=== PATIENT | female | born 1995 | race Caucasian/White ===

== ENCOUNTER 2020-07-01 22:11 | Emergency (ER) | payer OTHER ==
[~2020-07-01] VITALS: Ht 167.6 cm; Wt 81.8 kg
[2020-07-01] MEDS ORDERED: ONDANSETRON ODT 4 MG TAB.RAPDIS PO ONE (22:30)
[2020-07-01 23:12] LABS: BACTERIA,URINE FEW /HPF (0-FEW); BILIRUBIN,URINE NEG (NEG); CLARITY,URINE HAZY; COLOR,URINE YELLOW; GLUCOSE,URINE NEG (NEG); NITRITE,URINE NEG (NEG); SQUAMOUS EPITHELIAL CELL,UR FEW /LPF; UROBILINOGEN,URINE 0.2 mg/dL (0.2 mg/dL); WBC,URINE 0 /HPF (0-4)
--- NOTE | 2020-07-02 00:31 | PHYS DOC ---
Past History Past Medical History: Anemia, Anxiety Past Surgical History: Appendectomy Alcohol Use: Occasionally Adult General Chief Complaint Chief Complaint: NAUSEA/VOMITING/DIARRHEA HPI HPI Patient is an otherwise healthy 25-year-old female who presents with a chief complaint of nausea, vomiting and lightheadedness. States she has been doing well up until a few hours before coming to the ED. States she went to lay down on the sofa earlier and after lying down began to feel nauseous then felt lightheaded and had an episode of nonbloody nonbilious emesis. States that she has had that twice now. States she ate a little bit for breakfast this morning as usual but not a whole lot else. States she drank a little bit of Yovany-Aid today but not much else. Denies any recent travel, illnesses, fevers, chest pain, shortness of breath, abdominal pain, dysuria, hematuria, diarrhea or blood in the stool. Does state that she has a history of iron deficiency anemia and is taking iron. Review of Systems Review of Systems Review of systems otherwise unremarkable except noted in HPI Current Medications Current Medications Current Medications Medications (Trade) Dose Ordered Sig/Shanique Start Time Stop Time Status Last Admin Dose Admin Ondansetron HCl (Zofran Odt) 8 mg 1X ONCE 07/01/20 22:30 07/01/20 22:44 DC 07/01/20 22:53 8 MG Allergies Allergies Allergies Coded Allergies Type Severity Reaction Last Updated Verified Penicillins Allergy Severe RASH 07/01/20 Yes Physical Exam Physical Exam Constitutional: Well developed, well nourished, no acute distress, non-toxic appearance. [] HENT: Normocephalic, atraumatic, bilateral external ears normal, oropharynx moist, no oral exudates, nose normal. [] Eyes: PERRLA, EOMI, conjunctiva normal, no discharge. [] Neck: Normal range of motion, no tenderness, supple, no stridor. [] Cardiovascular:Heart rate regular rhythm, no murmur [] Lungs & Thorax: Bilateral breath sounds clear to auscultation [] Abdomen: soft, no tenderness, no masses, no pulsatile masses. [] Skin: Warm, dry, no erythema, no rash. [] Extremities: No tenderness, no cyanosis, no clubbing, ROM intact, no edema. [] Neurologic: Alert and oriented X 3, normal motor function, normal sensory function, no focal deficits noted. Able to ambulate without issue and no changes in heart rate or blood pressure. [] Psychologic: Affect normal, judgement normal, mood normal. [] Current Patient Data Vital Signs Vital Signs Date Time Temp Pulse Resp B/P (MAP) Pulse Ox O2 Delivery O2 Flow Rate FiO2 07/01/20 22:35 98.6 70 16 163/104 (123) 99 Room Air Lab Results Laboratory Tests Test 07/01/20 22:45 07/01/20 22:58 Urine Collection Type Unknown Urine Color Yellow Urine Clarity Hazy Urine pH 6.0 Urine Specific [place] >=1.030 Urine Protein Trace (NEG-TRACE) Urine Glucose (UA) Neg mg/dL (NEG) Urine Ketones (Stick) Neg mg/dL (NEG) Urine Blood Large (NEG) Urine Nitrite Neg (NEG) Urine Bilirubin Neg (NEG) Urine Urobilinogen Dipstick 0.2 mg/dL (0.2 mg/dL) Urine Leukocyte Esterase Neg (NEG) Urine RBC 11-20 /HPF (0-2) Urine WBC 0 /HPF (0-4) Urine Squamous Epithelial Cells Few /LPF Urine Bacteria Few /HPF (0-FEW) Urine Mucus Slight /LPF POC Urine HCG, Qualitative hcg negative (Negative) EKG EKG EKG with a rate of 70, QRS of 82, QTc of 470, no STEMI. [] Radiology/Procedures Radiology/Procedures [] Heart Score C/O Chest Pain: No Risk Factors: Risk Factors: DM, Current or recent (<one month) smoker, HTN, HLP, family history of CAD, obesity. Risk Scores: Risk Factors: DM, Current or recent (<one month) smoker, HTN, HLP, family history of CAD, obesity. Course & Med Decision Making Course & Med Decision Making Patient is a 25-year-old female who presents with nausea, vomiting and lightheadedness Vital signs notable for hypertension. Sitting and standing blood pressures and heart rates normal. negative. Urinalysis normal. EKG noted above and is normal. Given Zofran which resolved her symptoms. Laboratory analysis notable for mild hyponatremia and hypokalemia. Not low enough for admission. Discussed findings with family and advised follow-up with primary care physician first thing Saturday to discuss ED visit and set up a follow-up. Advised a more nutritious diet as patient states she usually only eats about 1 time a day. Advised eating 3 nutritious meals a day and drinking plenty of fluids. Gave Zofran prescription to allow p.o. intake as needed. Gave strict return precautions to the emergency department. Family grateful, verbalized understanding and agreed with plan of discharge. [] Dragon Disclaimer Dragon Disclaimer This electronic medical record was generated, in whole or in part, using a voice recognition dictation system. Departure Departure: Impression: Primary Impression: Nausea & vomiting Additional Impressions: Lightheadedness Hyponatremia Disposition: 01 DC HOME SELF CARE/HOMELESS Condition: GOOD Referrals: PCP,UNKNOWN (PCP) Patient Instructions: Hypokalemia-Brief, Hyponatremia, Nausea and Vomiting, [id number] Additional Instructions: Please read all the attached information. You were given nausea medicine to take at home as needed to allow p.o. intake. Please begin to eat 3 nutritious meals a day and drink plenty of fluids. Please call your primary care physician first thing Saturday morning to discuss your ED visit and set up a follow-up appointment as soon as you can. Please come back to the emergency department immediately with any new or concerning symptoms. Scripts Ondansetron Hcl (ZOFRAN) 4 Mg Tablet 1 TAB PO TID PRN for NAUSEA, #6 TAB 2 Refills Prov: SAPNA DALEY MD 07/02/20 Problem Qualifiers SAPNA DALEY MD Jul 02, 2020 00:31
--- NOTE | 2020-07-02 00:56 | EKG ---
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
[2020-07-02 01:00] VITALS: BP 158/69
[2020-07-02 01:12] LABS: HEMATOCRIT 40.2 % (36.0-47.0); HEMOGLOBIN 13.6 g/dL (12.0-15.5); RED BLOOD COUNT 4.04 x10^6/uL (3.50-5.40); RED CELL DISTRIBUTION WIDTH 14.6 % (11.5-14.5); WHITE BLOOD COUNT 11.9 x10^3/uL (4.0-11.0)
[2020-07-02 01:13] LABS: CALCIUM 8.8 mg/dL (8.5-10.1); CREATININE 0.9 mg/dL (0.6-1.0); GFR 75.1; POTASSIUM 3.3 mmol/L (3.5-5.1)
[2020-07-02] MEDS ORDERED: ONDA4TAB7 PO (01:35)
== END 2020-07-02 01:55 | disposition home or self-care (01) ==
LOC: ER 22:11
DX: R11.2 Nausea with vomiting, unspecified (principal); R42 Dizziness and giddiness; E87.1 Hypo-osmolality and hyponatremia; D64.9 Anemia, unspecified; F41.9 Anxiety disorder, unspecified; Z90.89 Acquired absence of other organs; Z88.0 Allergy status to penicillin
CPT/HCPCS: 36415; 80048; 81001; 81025; 85027; 93005; 99285; Q0162